=== PATIENT | female | born 1985 | race Hispanic/Latino ===

== ENCOUNTER 2023-01-30 02:14 | Emergency (ER) | payer SELFPAY ==
[2023-01-30] VITALS (9 sets, daily range): BP systolic 89–113; BP diastolic 55–66
[2023-01-30 02:48] LABS: BASO% 0.5 % (0-3); EOS% 1.2 % (0-8); HEMATOCRIT 34.1 % (37.0-47.0); HEMOGLOBIN 11.5 g/dl (12.0-16.0); LYMPH% 65.3 % (15-41); MEAN CELL VOLUME 86.8 fL CALC (80.0-100.0); MEAN CORPUSCULAR HGB 29.3 pG CALC (26.0-32.0); MEAN CORPUSCULAR HGB CONC 33.7 g/dL CAL (32.0-36.0); NEUT# 1.12 thou/uL (2.00-7.15); RED BLOOD COUNT 3.93 mill/uL (4.20-5.60); RED CELL DISTRI WIDTH 14.4 % (11.5-15.5)
[2023-01-30 03:02] LABS: ALBUMIN 4.1 g/dL (3.2-5.0); ALKALINE PHOSPHATASE 72 u/l (38-126); ANION GAP 12 (6-22 (CALC)); BILIRUBIN, TOTAL 0.7 mg/dL (0.02-1.3); BUN 14 mg/dL (7-17); BUN/CREATININE RATIO 23 (12-20 (CALC)); CARBON DIOXIDE 26 mmol/l (22-30); CHLORIDE 104 mmol/l (95-108); CREATININE 0.6 mg/dL (0.5-1.0); GFR FOR AFR.AMER. > 60 ML/MIN (>=60 (CALC)); GFR OTHER RACES > 60 ML/MIN (>=60 (CALC)); POTASSIUM 3.1 mmol/l (3.5-5.1); SGOT/AST 126 u/l (14-36); SODIUM 138 mmol/l (137-146); TOTAL PROTEIN 6.9 g/dL (6.3-8.2)
[2023-01-30 03:20] LABS: URINE BILIRUBIN - DIPSTICK Negative (NEGATIVE); URINE BLOOD DIPSTICK Moderate (NEGATIVE); URINE GLUCOSE - DIPSTICK Negative (NEGATIVE); URINE KETONE Trace mg/dL (NEGATIVE); URINE NITRITE - DIPSTICK Negative (Negative); URINE PROTEIN - DIPSTICK Negative (NEG-TRACE); URINE SPECIFIC GRAVITY 1.025
[2023-01-30 03:30] LABS: URINE COLOR Yellow
[2023-01-30 03:31] LABS: URINE LEUK ESTERASE Negative (NEGATIVE)
[2023-01-30 03:32] LABS: URINE BACTERIA FEW hpf; URINE EPITHELIAL CELLS FEW EPI/hpf (0-FEW)
[2023-01-30] MEDS ORDERED: CIPROFLOXACN500 MG PO (03:52)
[2023-01-30] MEDS ORDERED: NAPROXEN500 MG PO (03:53)
== END 2023-01-30 04:16 | disposition home or self-care (01) | DRG 313 ==
LOC: ED 02:14
PROVIDERS: Emergency Medicine
DX: R07.89 Other chest pain (principal); R41.9 Unspecified symptoms and signs involving cognitive functions and awareness
CPT/HCPCS: J2060

== ENCOUNTER 2023-05-22 04:35 | Emergency (ER) | payer SELFPAY ==
[2023-05-22] VITALS (8 sets, daily range): BP systolic 107–131; BP diastolic 70–86
[~2023-05-22 04:35] MED LIST: CIPROFLOXACN500 MG PO; NAPROXEN500 MG PO
[2023-05-22 05:16] LABS: BASO% 0.3 % (0-3); EOS% 0.3 % (0-8); HEMATOCRIT 34.9 % (37.0-47.0); HEMOGLOBIN 11.3 g/dl (12.0-16.0); IMMATURE GRANULOCYTES 0.3 % (0.0-5.0); LYMPH% 29.6 % (15-41); MEAN CELL VOLUME 84.5 fL CALC (80.0-100.0); MEAN CORPUSCULAR HGB 27.4 pG CALC (26.0-32.0); MEAN CORPUSCULAR HGB CONC 32.4 g/dL CAL (32.0-36.0); MONO% 11.6 % (2-13); NEUT% 57.9 % (42-76); RED BLOOD COUNT 4.13 mill/uL (4.20-5.60); RED CELL DISTRI WIDTH 15.5 % (11.5-15.5)
== END 2023-05-22 06:20 | disposition home or self-care (01) | DRG 833 ==
LOC: ED 04:35
PROVIDERS: Family Medicine
DX: O99.511 Diseases of the respiratory system complicating pregnancy, first trimester (principal); J06.9 Acute upper respiratory infection, unspecified; Z3A.08 8 weeks gestation of pregnancy; Z20.822 Contact with and (suspected) exposure to COVID-19